=== PATIENT | male | born 1980 | race Caucasian/White ===

== ENCOUNTER 2016-10-30 15:41 | Emergency (ER) | payer OTHER ==
[~2016-10-30 15:41] MED LIST: KEFLEX500 MG PO; PEPCID40 MG PO
[2016-10-30 15:42] VITALS: BP 109/61
[2016-10-30] MEDS ORDERED: Motrin,Rufen800 MG PO (16:13)
[2016-10-30] MEDS ORDERED: CYCLOBENZAPRINE10 MG PO (16:13)
== END 2016-10-30 16:37 | disposition home or self-care (01) ==
LOC: ED 15:41
DX: R10.30 Lower abdominal pain, unspecified (principal); F17.200 Nicotine dependence, unspecified, uncomplicated

== ENCOUNTER 2018-02-11 20:21 | Emergency (ER) | payer OTHER ==
[~2018-02-11] VITALS: Ht 180.3 cm; Wt 65.8 kg
[~2018-02-11 20:21] MED LIST changes: +CYCLOBENZAPRINE10 MG PO; +Motrin,Rufen800 MG PO
[2018-02-11 20:23] VITALS: BP 128/71
[2018-02-11] MEDS ORDERED: CYCLOBENZAPRINE5 M3 PO (22:02)
== END 2018-02-11 22:05 | disposition home or self-care (01) ==
LOC: ED 20:21
DX: S46.811A Strain of other muscles, fascia and tendons at shoulder and upper arm level, right arm, initial encounter (principal); F10.10 Alcohol abuse, uncomplicated; W01.198A Fall on same level from slipping, tripping and stumbling with subsequent striking against other object, initial encounter; Y93.89 Activity, other specified; Y92.89 Other specified places as the place of occurrence of the external cause; Y99.0 Civilian activity done for income or pay

== ENCOUNTER 2018-05-03 10:30 | Emergency (ER) | payer SELFPAY ==
[~2018-05-03 10:30] MED LIST changes: +CYCLOBENZAPRINE5 M3 PO
[2018-05-03 10:45] VITALS: BP 105/67
[2018-05-03] MEDS ORDERED: ZYRTEC10 MG PO (11:09)
[2018-05-03] MEDS ORDERED: FLONASE ALLERG9.9 ML NAS (11:09)
[2018-05-03] MEDS ORDERED: PREDNISONE20 M1 PO (11:09)
== END 2018-05-03 12:28 | disposition home or self-care (01) ==
LOC: ED 10:30
DX: J06.9 Acute upper respiratory infection, unspecified (principal)

== ENCOUNTER 2018-05-18 11:39 | Emergency (ER) | payer SELFPAY ==
[~2018-05-18] VITALS: Ht 180.3 cm; Wt 63.5 kg
[~2018-05-18 11:39] MED LIST changes: +FLONASE ALLERG9.9 ML NAS; +PREDNISONE20 M1 PO; +ZYRTEC10 MG PO
[2018-05-18 11:40] VITALS: BP 115/58
[2018-05-18] MEDS ORDERED: PREDNISONE10 MG PO (12:01)
[2018-05-18] MEDS ORDERED: FLONASE ALLERG9.9 ML NAS (12:01)
[2018-05-18] MEDS ORDERED: CLARITIN10 MG PO (12:01)
== END 2018-05-18 12:01 | disposition home or self-care (01) ==
LOC: ED 11:39
DX: B34.9 Viral infection, unspecified (principal); Z79.899 Other long term (current) drug therapy

== ENCOUNTER 2019-03-04 08:12 | Emergency (ER) | payer OTHER ==
[~2019-03-04] VITALS: Ht 177.8 cm; Wt 68.0 kg
[~2019-03-04 08:12] MED LIST changes: +CLARITIN10 MG PO; +LOPRESSOR25 MG PO; +LOPRESSOR50 M1 PO; +PREDNISONE10 MG PO; +[UNRECOGNIZED DRUG - REMARK]
[2019-03-04 08:13] VITALS: BP 147/87
== END 2019-03-04 10:20 | disposition home or self-care (01) ==
LOC: ED 08:12
DX: S60.411A Abrasion of left index finger, initial encounter (principal); S60.413A Abrasion of left middle finger, initial encounter; S60.415A Abrasion of left ring finger, initial encounter; Z79.899 Other long term (current) drug therapy; W31.89XA Contact with other specified machinery, initial encounter; Y93.89 Activity, other specified; Y92.69 Other specified industrial and construction area as the place of occurrence of the external cause; Y99.0 Civilian activity done for income or pay

== ENCOUNTER 2019-10-17 10:00 | Emergency (ER) | payer SELFPAY ==
[~2019-10-17] VITALS: Ht 177.8 cm; Wt 68.0 kg
[2019-10-17 10:05] VITALS: BP 118/76
[2019-10-17] MEDS ORDERED: AMOXICILLIN500 M2 PO (10:55)
== END 2019-10-17 10:59 | disposition home or self-care (01) ==
LOC: ED 10:00
DX: J02.9 Acute pharyngitis, unspecified (principal); Z79.899 Other long term (current) drug therapy

== ENCOUNTER 2020-09-20 09:49 | Emergency (ER) | payer SELFPAY ==
[~2020-09-20] VITALS: Ht 177.8 cm; Wt 63.5 kg
[~2020-09-20 09:49] MED LIST changes: +AMOXICILLIN500 M2 PO
[2020-09-20 10:00] VITALS: BP 121/76
[2020-09-20] MEDS ORDERED: NAPROXEN250 MG PO (10:33)
[2020-09-20] MEDS ORDERED: TYLENOL325 M1 PO (10:33)
[2020-09-20] MEDS ORDERED: CYCLOBENZAPRINE10 MG PO (10:33)
== END 2020-09-20 11:16 | disposition home or self-care (01) ==
LOC: ED 09:49
DX: R07.89 Other chest pain (principal); Z79.899 Other long term (current) drug therapy

== ENCOUNTER → 2022-05-25 | Outpatient (CLI) | payer OTHER ==
[~2022-05-25] MED LIST changes: +NAPROXEN250 MG PO; +TYLENOL325 M1 PO
[2022-05-25 15:58] LABS: BASO # 0.1 10*3/uL (0.0-0.1); BASO % 0.9 % (0.0-1.0); EOS # 0.1 10*3/uL (0.0-0.4); EOS % 2.2 % (1.0-4.0); HEMATOCRIT 39.7 % (42.0-52.0); LYMPH # 2.1 10*3/uL (1.3-4.4); LYMPH % 39.1 % (27.0-41.0); MEAN CELL VOLUME 91.7 fl (80.0-94.0); MEAN CORPUSCULAR HGB 30.5 pg (27.0-31.0); MEAN CORPUSCULAR HGB CONC 33.2 g/dl (33.0-37.0); MEAN PLATELET VOLUME 10.5 fl (9.6-12.3); MONO # 0.5 10*3/uL (0.1-1.0); MONO % 8.7 % (3.0-9.0); NEUT # 2.6 10*3/uL (2.3-7.9); NEUT % 48.7 % (47.0-73.0); PLATELET COUNT AUTOMATED 230 10*3/uL (130-400); RED BLOOD COUNT 4.33 10*6/uL (4.50-5.90); RETICULOCYTE % 0.85 % (0.50-2.50); WHITE BLOOD COUNT 5.4 10*3/uL (4.8-10.8)
[2022-05-25 16:03] LABS: BILIRUBIN Negative (Negative); BLOOD Negative (Negative); CLARITY Clear (Clear); COLOR Yellow (Yellow); GLUCOSE Negative (Negative); KETONE Negative (Negative); LEUKO ESTERASE Negative (Negative); NITRITE Negative (Negative); PH 7.5 (4.5-8.0); SPECIFIC GRAVITY 1.025 (1.001-1.030)
[2022-05-25 16:16] LABS: ALKALINE PHOSPHATASE 80 U/L (46-116); BUN 13 mg/dl (9-23); CHLORIDE 106 mmol/L (98-107); CHOLESTEROL 162 mg/dL (<200); GAMMA GLUTAMYL TRANSPEPTIDASE 17 U/L (0-73); LDL CHOLESTEROL 81 mg/dL (9-159); SGPT/ALT 36 U/L (10-49); T3 UPTAKE 23.9 % (22.4-36.7); THYROID STIM HORMONE (HS) 1.294 uIU/ml (0.550-4.780); TRIGLYCERIDES 151 mg/dl (<150); URIC ACID 4.2 mg/dL (3.7-9.2)
[2022-05-25 16:34] LABS: VITAMIN D, 25-HYDROXY 18.8 ng/mL (30-100)
[2022-05-25 17:34] LABS: RBC 0-2 rbc/hpf (0-2); WBC 0-2 wbc/hpf (0-5)
[2022-05-25 17:35] LABS: EPITHELIAL CELLS 0-2
== END | disposition home or self-care (01) ==
LOC: LAB 15:39
PROVIDERS: ATTEND Family Medicine
DX: E78.5 Hyperlipidemia, unspecified (principal); E55.9 Vitamin D deficiency, unspecified; R79.89 Other specified abnormal findings of blood chemistry; R53.83 Other fatigue; R74.8 Abnormal levels of other serum enzymes

== ENCOUNTER 2022-10-06 16:23 | Emergency (ER) | payer OTHER ==
[~2022-10-06] VITALS: Ht 177.8 cm; Wt 68.0 kg
[2022-10-06 16:43] VITALS: BP 132/88
[2022-10-06] MEDS ORDERED: AVPAK AZITHROM250 M1 PO (17:02)
== END 2022-10-06 17:11 | disposition home or self-care (01) ==
LOC: ED 16:23
DX: J32.9 Chronic sinusitis, unspecified (principal); J04.0 Acute laryngitis; Z79.899 Other long term (current) drug therapy

== ENCOUNTER 2023-02-07 09:36 | Emergency (ER) | payer OTHER ==
[~2023-02-07] VITALS: Wt 68.0 kg
[~2023-02-07 09:36] MED LIST changes: +AVPAK AZITHROM250 M1 PO
[2023-02-07 09:47] VITALS: BP 139/77
[2023-02-07] MEDS ORDERED: VIBRAMYCIN100 MG PO (10:12)
== END 2023-02-07 10:22 | disposition home or self-care (01) ==
LOC: ED 09:36
DX: S50.852A Superficial foreign body of left forearm, initial encounter (principal); W57.XXXA Bitten or stung by nonvenomous insect and other nonvenomous arthropods, initial encounter; Y93.89 Activity, other specified; Y92.89 Other specified places as the place of occurrence of the external cause; Y99.8 Other external cause status

== ENCOUNTER 2023-06-09 06:50 | Emergency (ER) | payer OTHER ==
[~2023-06-09] VITALS: Ht 177.8 cm; Wt 63.5 kg
[~2023-06-09 06:50] MED LIST changes: +VIBRAMYCIN100 MG PO
[2023-06-09 07:09] VITALS: BP 119/69
== END 2023-06-09 07:41 | disposition home or self-care (01) ==
LOC: ED 06:50
DX: J32.9 Chronic sinusitis, unspecified (principal)

== ENCOUNTER 2024-01-30 02:08 | Emergency (ER) | payer OTHER ==
[~2024-01-30] VITALS: Ht 177.8 cm; Wt 68.0 kg
[2024-01-30 02:24] VITALS: BP 117/74
[2024-01-30] MEDS ORDERED: methylPREDNISolone sod succ 125 MG VIAL IM ONE (02:30)
[2024-01-30] MEDS ORDERED: ZITHROMAX250 MG PO (02:34)
[2024-01-30] MEDS ORDERED: PREDNISONE20 M1 PO (02:34)
== END 2024-01-30 03:07 | disposition home or self-care (01) ==
LOC: ED 02:08
DX: J20.8 Acute bronchitis due to other specified organisms (principal)

== ENCOUNTER → 2024-05-31 | Emergency (ER) | payer OTHER ==
[~2024-05-31] VITALS: Ht 177.8 cm; Wt 68.0 kg
[~2024-05-31] MED LIST changes: +ZITHROMAX250 MG PO
== END ==
LOC: ED 08:47
DX: J32.9 Chronic sinusitis, unspecified (principal); Z20.822 Contact with and (suspected) exposure to COVID-19; H92.02 Otalgia, left ear; Z79.899 Other long term (current) drug therapy; Z79.2 Long term (current) use of antibiotics

== ENCOUNTER 2024-12-17 09:42 | Emergency (ER) | payer SELFPAY ==
[~2024-12-17] VITALS: Ht 177.8 cm; Wt 68.0 kg
[2024-12-17 09:55] VITALS: BP 117/64
[2024-12-17 10:25] LABS: BASO # 0.1 10*3/uL (0.0-0.1); BASO % 1.2 % (0.0-1.0); EOS # 0.1 10*3/uL (0.0-0.4); EOS % 2.3 % (1.0-4.0); MEAN CELL VOLUME 91.1 fl (80.0-94.0); MEAN CORPUSCULAR HGB 30.9 pg (27.0-31.0); MEAN PLATELET VOLUME 10.1 fl (9.6-12.3); MONO # 0.3 10*3/uL (0.1-1.0); MONO % 7.7 % (3.0-9.0); NEUT # 2.3 10*3/uL (2.3-7.9); NEUT % 53.6 % (47.0-73.0); NUCLEATED RED BLOOD CELL 0.0 % (0.0-0.0); NUCLEATED RED BLOOD CELL 0.0 10*3/uL (0.0-0.0); PLATELET COUNT AUTOMATED 217 10*3/uL (130-400); RED CELL DISTRI WIDTH 11.6 % (0-14.5)
[2024-12-17 10:47] LABS: BUN 13 mg/dl (9-23)
[2024-12-17] MEDS ORDERED: MELOXICAM15 MG PO (11:12)
== END 2024-12-17 11:22 | disposition home or self-care (01) ==
LOC: ED 09:42
PROVIDERS: Internal Medicine
DX: M75.42 Impingement syndrome of left shoulder (principal); Z79.899 Other long term (current) drug therapy